=== PATIENT | female | born 1985 | race Caucasian/White ===

== ENCOUNTER 2017-03-12 16:10 | Emergency (ER) | payer OTHER ==
[2017-03-12 16:16] VITALS: BP 138/88
--- NOTE | 2017-03-12 16:40 | ERNOTE ---
Upper Extremity HPI - Narrative Date of Service: 03/12/17 - General Extremities Pain Location: arm: left Time Seen by Provider: 03/12/17 16:24 Source: patient Exam Limitations: no limitations - Immun/Allergies/Home Medications Immunizations: IMMUNIZATION HX Immunizations Up to Date Yes History of Influenza Vaccine Yes Hx Pneumococcal Vaccination No Allergies/Adverse Reactions: Allergies Allergy/AdvReac Type Severity Reaction Status Date / Time venom-honey bee Allergy Severe Swelling Verified 03/12/17 16:16 [bee venom (honey bee)] (Other) Latex, Natural Rubber Allergy Intermediate Hives Verified 03/12/17 16:16 Home Medications: HOME MEDICATIONS Medroxyprogesterone Acetate [Depo-Provera Contraceptive] 150 mg IM Q90D [Last Taken Unknown] SUMAtriptan SUCCINATE [Imitrex] 100 mg PO Q2H PRN 01/02/16 [Last Taken Unknown] - History of Present Illness Narrative: Pt. comes in with c/o L forearm pain after she hit her ulna on a pt. wheelchair at work just prior to arrival. Pt. denies any SOB, CP, NVD, fever open wounds but does state that there is some swelling and numbness distally. Pt. denies any prehospital treatment, alleviating factors, or aggravating factors. Review of Systems - Review of Systems Constitutional: Present: no symptoms reported. Absent: recent illness, fever, chills, weakness, fatigue, malaise EYE: Present: no symptoms reported ENT: Present: no symptoms reported Respiratory: Present: no symptoms reported. Absent: shortness of breath, cough , wheezing Cardiology: Present: no symptoms reported. Absent: chest pain, palpitations, edema Gastrointestinal/Abdominal: Present: no symptoms reported. Absent: nausea, vomiting, diarrhea Genitourinary: Present: no symptoms reported Musculoskeletal: Present: muscle pain - L forearm lateral All Other Systems: All systems neg except as marked - Patient's Past Medical History Patient History - Medical: Depression, Migraines Patient History - Cardiac/Respiratory: No pertinent hx Patient History - Cancer: Cervical Patient History - Surgical Procedures: Other Patient History - Other: None - Family History Father Family History - Medical: , Depression Family History - Cardiac/Respiratory: Hypertension, Hyperlipidemia, Myocardial Infarction Mother Family History - Medical: Other Family History - Cardiac/Respiratory: Hyperlipidemia - Social History Living Situations: significant other Abuse History: No History of abuse Psych History: Hx of Anxiety, Hx of Depression Smoking Status: Current every day smoker Have you smoked in the past 12 months: Yes Alcohol Use: occasionally Drug Use: none - Immunizations Immunizations Up to Date: Yes Hx Pneumococcal Vaccination: No History of Influenza Vaccine: Yes Physical Exam - Physical Exam General Appearance: Present: wd/wn, alert, no apparent distress Eye Exam: Normal inspection: bilateral, PERRL: bilateral, EOMI: bilateral Neck: Present: normal inspection, nontender. Absent: lymphadenopathy (R), lymphadenopathy (L) Respiratory: Present: no respiratory distress, normal breath sounds, no accessory muscle use, chest nontender, lungs clear Cardiovascular/Chest: Present: regular rate, rhythm, no murmur, normal peripheral pulses Back Exam: Present: normal inspection Extremity Exam: Present: normal range of motion, no edema, bony tenderness - distal ulna Neurological Exam: Present: alert, oriented, normal mood/affect, other - numbness L hand Skin Exam: Present: normal color, warm/dry, other - bruising distl lateral forearm ED Progress - Vital Signs Patient's Vital Signs:: I have reviewed the patient's vital signs. Vital Signs: Vital Signs 03/12/17 16:13 Temperature 36.5 C Pulse Rate 101 H Respiratory 12 Rate Blood Pressure 138/88 O2 Sat by Pulse 98 Oximetry - X-Ray X-Ray #1 X-Ray: forearm Interpretation: Reviewed by me X-ray Comments: no obvious acute ossious abnormality - Progress/Reassessment Chief Complaint: Wrist Injury/Pain Progress:: Improved Departure Clinical Impression: Tendinopathy - Departure Disposition: Home self-care Condition: Good Instructions: Flexor Carpi Ulnaris and Radialis Tendinitis, with [facility], Extensor Carpi Ulnaris Tendinitis With [facility] Additional Instructions: Please follow up with occupational health by calling their office tomorrow for appointment. Please elevate arm and use Ibuprofen 600mg every 6 hours for pain and swelling. Referrals: Antonio Gonzalez MD [Primary Care Provider] -
== END 2017-03-12 17:33 | disposition home or self-care (01) ==
LOC: ER 16:10
DX: M77.8 Other enthesopathies, not elsewhere classified (principal); Z72.0 Tobacco use; X58.XXXA Exposure to other specified factors, initial encounter; Y93.F9 Activity, other caregiving; Y92.129 Unspecified place in nursing home as the place of occurrence of the external cause; Y99.0 Civilian activity done for income or pay